=== PATIENT | male | born 1950 ===

== ENCOUNTER 2017-03-31 15:24 | Observation (INO) | payer MEDICARE ==
[2017-03-31] MEDS ORDERED: Lidocaine 2% Jelly 5 ML TUBE ONE (15:49)
[2017-03-31] MEDS ORDERED: Chlorhexidine Gluconate 15 ML UDCUP SSP PRN (17:13)
[2017-03-31 17:17] VITALS: BMI 19.8
[2017-03-31 17:53] LABS: #Eosinphils 0.1 thou/uL (0.0-0.7); #Lymphocytes 1.2 thou/uL (1.20-3.40); #Monocytes 1.4 thou/uL (0.11-0.59); #Neutrophils 9.3 thou/uL (1.40-6.50); %Basophils 0.1 % (0.0-1.0); %Eosinophils 1.1 % (0.0-10.0); %Lymphocytes 10.1 % (21.0-51.0); %Monocytes 11.9 % (0.0-10.0); Hematocrit 42.2 % (42.0-52.0); Mean Platelet Volume 8.4 fL (7.4-10.4); Red Blood Cell (RBC) Count 4.25 mill/uL (4.70-6.10)
[2017-03-31 18:00] LABS: PTT 43.6 SEC (22.9-36.1); Prothrombin Time 27.7 SEC (12.0-14.7)
[2017-03-31] MEDS ORDERED: Clindamycin/D5W 600 MG in Premix Bag 1 BAG IVPB SCH (18:00)
[2017-03-31 18:08] LABS: Anion Gap 16 mmol/L (10-20); BUN (Urea Nitrogen) 15 mg/dL (8.4-25.7); Calc. Creatinine Clearance 57 mL/min (70-130); Carbon Dioxide 25 mmol/L (23-31); Chloride 97 mmol/L (98-107); Estimated GFR-MDRD 74
[2017-03-31] MEDS ORDERED: Acetaminophen/Codeine 30-300mg Tablet PO PRN (18:39)
[2017-03-31 20:29] VITALS: TEMP 98.8
[2017-03-31 20:39] VITALS: BP 128/79
[2017-03-31] MEDS ORDERED: Acetaminophen/Codeine 30-300mg Tablet PO SCH (20:45)
[2017-03-31] MEDS ORDERED: TETANUS AND DIPHTHERIA TOX/PF 0.5 ML DISP.SYRIN IM ONE (21:00)
--- NOTE | 2017-04-01 08:28 | SS-2 ---
ATTENDING: Dr. Gregg Rodriguez CHIEF COMPLAINT: Left swelling of his face. HISTORY OF PRESENT ILLNESS: This is a 66-year-old male who presents with a 5-day history of pain an d swelling in his left cheek. He states it started while eating some red meat and a bone cut him. He tried taking food out with a toothpick and the swelling began. He states he cannot open his mout h all the way. He states he had fevers. He states he has not been able to eat or sleep normally. He does note difficulty swallowing, but no difficulty breathing. PAST MEDICAL HISTORY: Significant for atrial fibrillation, hypertension, and CHF. PAST SURGICAL HISTORY: Significant for mitral valve replacement. ALLERGIES: No known drug allergies. SOCIAL HISTORY: He does have a 10-wmpd-kcis smoking history. He denies excessive alcohol use, will drink socially. Denies any drug use. FAMILY HISTORY: Nothing of note. MEDICATIONS: On admission, his medications were Prinivil 5 mg, Lanoxin 250 mcg, metoprolol 50 mg XR . Warfarin 10 mg Thursday, Thursday, Thursday; warfarin 5 mg Thursday, , and Thursday. REVIEW OF SYSTEMS: GENERAL: He does admit to fevers and appetite changes because of the pain. He denies any night swe ats or fatigue. EYES: He denies any vision changes or eye pain. ENT: Denies any nasal congestion, rhinorrhea, or sore throat. RESPIRATORY: Denies any cough, congestion, shortness of breath. He does admit to exercise intolera nce that is longstanding. Last echo in 2011 showed an EF of 15%. CARDIOVASCULAR: Denies any chest pain, palpitations, edema. GASTROINTESTINAL: Denies any nausea, vomiting, diarrhea, constipation, abdominal pain, GI bleeding. : Denies any incontinence, dysuria. SKIN: Denies any rashes. He does admit to lesions, especially around his left cheek and inside his mouth. MUSCULOSKELETAL: Denies any pain, tenderness, stiffness, swelling or arthritis. NEUROLOGIC: Does admit to weakness that is longstanding. Denies any numbness, syncope, or seizures . PSYCHIATRIC: He denies any anxiety or depression. PHYSICAL EXAMINATION: VITAL SIGNS: His blood pressure is 127/73, pulse was 111, respirations were 20, temperature max was 97, pulse ox 98% on room air. Current weight was 58 kilograms. GENERAL: He is alert and oriented x4. He was thin. He was appropriately interactive. EYES: PERRLA. Conjunctivae within normal limits. ENT: Tympanic membranes were pearly bundy without bulging or erythema. Nasal mucosa within normal l imits. His oropharynx; he had a draining abscess of the gingiva on the lateral side of his lower r ow of teeth, extended basically the length of his mandible on the inside of his mouth. NECK: Supple, without lymphadenopathy. CARDIOVASCULAR: Regular rate and mechanical valve sounds can be heard on auscultation. Radial and pedal pulses are equal bilaterally. RESPIRATORY: Normal effort, no retractions. LUNGS: Clear to auscultation bilaterally. SKIN: Warm and dry. ABDOMEN: Soft, it was nontender. Bowel sounds were present x4. No mass or distention. EXTREMITIES: No clubbing, cyanosis or edema. MUSCULOSKELETAL: Structural tone, muscle strength and range of motion were within normal limits. NEUROLOGIC: No focal neurologic deficits. Cranial nerves II-XII grossly intact. GCS is 15. PSYCHIATRIC: He was appropriate. LABORATORY: For labs, he had a notable INR of 2.5. HOSPITAL COURSE: The patient was admitted to the hospital for his left gingival abscess. We consul t[facility]. Dr. Irving was a nice enough to give us some recommendations th at we appreciate. He said that he would rather put the patient on antibiotics for a few days and al so stopped his warfarin until his INR is down to 2.0, then he can come into his [facility] and have it drained just as an office procedure. The patient was in agr eement with this. He just wanted to have some pain medications given during that time. The patient was in agreement with this and did have some pain around the abscess site, but nothing that was goi ng to keep him in the hospital. He was discharged in appropriate condition. DISCHARGE DIAGNOSES: 1. Left dental abscess. 2. Longstanding atrial fibrillation with rate control. 3. Hypertension. DISCHARGE MEDICATIONS: 1. Metoprolol 50 mg. 2. Lisinopril 5 mg p.o. daily. 3. Digoxin 250 mcg. 4. Clindamycin 300 mg. 5. Chlorhexidine 6. Acetaminophen with codeine. DISCONTINUED MEDICATIONS: Warfarin. DISPOSITION: Disposition was stable. DISCHARGE INSTRUCTIONS: 1. Location, he will be discharged home into his own care. 2. Diet will be a heart healthy diet with no restrictions. He may need to have a mechanical soft d iet with the swelling and pain while he chews. 3. Activity will be as tolerated with no restrictions. 4. Follow up will be with Dr. Irving with [facility] in the coming days. He wi ll also follow up with daily INR checks at our clinic to ensure that his INR gets below [address] Irving's wishes before he gets this abscess drained.
--- NOTE | 2017-04-01 12:19 | CON ---
DATE OF CONSULTATION: 04/01/2017 REASON FOR CONSULTATION: Facial swelling in response to consultation by [facility]. CHIEF COMPLAINT: Facial swelling. HISTORY OF PRESENT ILLNESS: This is a male with approximately 5 day history of left facial swelling in the left mandibular vestibule area. This started after he feels like he injured his ch venetie ira with eating chicken bone or rib. He has a history of mitral valve replacement and is on Coumadi n currently. PAST MEDICAL HISTORY: Mitral valve replacement. PAST SURGICAL HISTORY: Mitral valve replacement. MEDICATIONS: Coumadin. SOCIAL HISTORY: Patient does smoke, drinks 6 packs a week. Denies drug abuse. PHYSICAL EXAMINATION: VITAL SIGNS: Patient's vital signs are stable. He is afebrile. GENERAL: Awake, alert and oriented x3 in no acute distress. He does have a fluctuant area of swell ing of left mandibular vestibule in the premolar area. His dentition is poor, but it does not look to be the source of this lesion. His opening is good. Floor of mouth is soft, supple. Anterior yeni rder of his mandible is palpable. His opening is good. LABORATORY DATA: White blood cell count is 12, INR is 2.5. ASSESSMENT: This is a male with left vestibular abscess, possibly secondary to trauma. PLAN: We will follow INR until below 2 and will then I\T\D in office. I feel this can be treated as an outpatient. Patient should be placed on clindamycin 300 mg t.i.d. In the interim, we will foll ow up with INR tomorrow to see the levels; once below 2, we will drain abscess.
== END 2017-03-31 21:50 | disposition home or self-care (01) ==
LOC: ERS 15:24 → T4-B 15:24 → INTOOBSV 16:53 → UNDOADMOB 16:53 → UNDODISOB 21:50
PROVIDERS: ADMIT Family Medicine; ATTEND Family Medicine
DX: K04.7 Periapical abscess without sinus (principal); I48.2 Chronic atrial fibrillation; I10 Essential (primary) hypertension; I50.9 Heart failure, unspecified; F17.210 Nicotine dependence, cigarettes, uncomplicated; Z79.01 Long term (current) use of anticoagulants; Z95.2 Presence of prosthetic heart valve
CPT/HCPCS: 80048; 85025; 85610; 85730; 90732; 96365; G0009; G0378; G0379; 36415; 90471; J3490

== ENCOUNTER 2017-12-03 10:18 | Outpatient (CLI) | payer MEDICARE ==
--- NOTE | 2017-12-03 11:15 | ULT ---
ULTRASOUND VENOUS DOPPLER LEFT UNILATERAL: HISTORY: Left leg pain and swelling. COMPARISON: None. TECHNIQUE: Real-time bundy-scale and color Doppler with spectral analysis of the left lower extremity venous syst em was performed. FINDINGS: The common femoral, femoral, and proximal portions of the greater saphenous and deep femoral veins, a s well as the popliteal and posterior tibial veins were interrogated. There is normal flow, augmentation, and compression. IMPRESSION: No deep venous thrombosis. POS: [facility]
== END 2017-12-03 10:19 | disposition home or self-care (01) ==
LOC: SCSULT 10:18
PROVIDERS: ATTEND Family Medicine
DX: M79.89 Other specified soft tissue disorders (principal); R60.9 Edema, unspecified; L53.9 Erythematous condition, unspecified; Z79.01 Long term (current) use of anticoagulants

== ENCOUNTER 2022-07-15 16:52 | Inpatient (IN) | payer MEDICARE, OTHER ==
[2022-07-15] MEDS ORDERED: Diltiazem 125 MG/25 ML ONE (17:06)
[2022-07-15 17:43] LABS: #Eosinphils 0.3 thou/uL (0.0-0.7); #Lymphocytes 1.2 thou/uL (1.20-3.40); #Monocytes 0.8 thou/uL (0.11-0.59); #Neutrophils 4.7 thou/uL (1.40-6.50); %Basophils 0.2 % (0.0-1.0); %Eosinophils 3.6 % (0.0-10.0); %Lymphocytes 16.9 % (21.0-51.0); %Monocytes 12.1 % (0.0-10.0); %Neutrophils 67.2 % (42.0-75.0); Hemoglobin 11.6 g/dL (14.0-18.0); INR-International Normal Ratio 2.4; Mean Corpuscular HGB CONC 32.2 g/dL (32.0-36.0); Mean Corpuscular Hemoglobin 30.5 pg (27.0-31.0); Mean Corpuscular Volume 94.8 fl (78.0-98.0); Mean Platelet Volume 9.1 fL (7.4-10.4); PTT 36.5 sec (22.9-36.1); Platelet Count 85 10x3/uL (130-400); Prothrombin Time 27.4 sec (12.0-14.7); RBC Distribution Width 13.8 % (11.5-14.5)
[2022-07-15 17:54] LABS: ALT (SGPT) 13 U/L (8-55); AST (SGOT) 28 U/L (5-34); Alkaline Phosphatase 78 U/L (40-110); Anion Gap 14 mmol/L (10-20); BUN (Urea Nitrogen) 18 mg/dL (8.4-25.7); Bilirubin, Total 0.8 mg/dL (0.2-1.2); Calc. Creatinine Clearance 0 mL/min (70-130); Calcium 8.8 mg/dL (7.8-10.44); Carbon Dioxide 19 mmol/L (23-31); Chloride 105 mmol/L (98-107); Estimated GFR 66; Globulin 3.4 g/dL (2.4-3.5); Glucose 122 mg/dL (83-110); Protein, Total 7.4 g/dL (5.8-8.1); Sodium 134 mmol/L (136-145)
[2022-07-15] MEDS ORDERED: Acetaminophen 325 MG TAB PO PRN (18:55)
[2022-07-15 19:38] LABS: Magnesium 1.9 mg/dL (1.6-2.6); Phosphorus 3.2 mg/dL (2.3-4.7)
[2022-07-15] MEDS ORDERED: Magnesium 2 GM/50 ML(in water) 1 GM in Premix Bag 1 BAG IVPB SCH (20:15)
[2022-07-15 20:32] LABS: Digoxin Less than 0.15 ng/mL (0.8-2.0)
[2022-07-15 20:37] LABS: Troponin I 0.024 ng/mL (< 0.028)
[2022-07-15 23:36] LABS: Troponin I 0.032 ng/mL (< 0.028)
[2022-07-16 00:59] LABS: SARS-CoV-2 NAA Rapid Test Not Detected (NotDetected)
[2022-07-16 05:54] LABS: #Eosinphils 0.2 thou/uL (0.0-0.7); #Lymphocytes 1.1 thou/uL (1.20-3.40); #Monocytes 0.8 thou/uL (0.11-0.59); #Neutrophils 3.8 thou/uL (1.40-6.50); %Basophils 0.3 % (0.0-1.0); %Eosinophils 3.4 % (0.0-10.0); %Monocytes 13.2 % (0.0-10.0); %Neutrophils 65.1 % (42.0-75.0); Hemoglobin 10.1 g/dL (14.0-18.0); Mean Corpuscular HGB CONC 32.2 g/dL (32.0-36.0); Mean Corpuscular Hemoglobin 30.4 pg (27.0-31.0); Mean Corpuscular Volume 94.5 fl (78.0-98.0); Mean Platelet Volume 8.9 fL (7.4-10.4); Platelet Count 90 10x3/uL (130-400); RBC Distribution Width 13.5 % (11.5-14.5); Red Blood Cell (RBC) Count 3.33 mill/uL (4.70-6.10); White Blood Cell (WBC) Count 5.8 10x3/uL (4.8-10.8)
[2022-07-16 06:02] LABS: INR-International Normal Ratio 2.2; Prothrombin Time 25.3 sec (12.0-14.7)
[2022-07-16 06:22] LABS: Anion Gap 11 mmol/L (10-20); BUN (Urea Nitrogen) 19 mg/dL (8.4-25.7); Calc. Creatinine Clearance 0 mL/min (70-130); Calcium 8.8 mg/dL (7.8-10.44); Carbon Dioxide 22 mmol/L (23-31); Chloride 105 mmol/L (98-107); Estimated GFR 78; Glucose 104 mg/dL (83-110); Magnesium 2.1 mg/dL (1.6-2.6); Phosphorus 2.4 mg/dL (2.3-4.7); Potassium 4.1 mmol/L (3.5-5.1); Sodium 134 mmol/L (136-145); Troponin I 0.045 ng/mL (< 0.028)
[2022-07-16] MEDS ORDERED: Diltiazem 125 MG in Sodium Chloride 0.9% 100 ML IVPB SCH (07:00)
[2022-07-16] MEDS ORDERED: Lisinopril 5 MG TAB PO SCH (09:00)
[2022-07-16] MEDS: Empagliflozin 10 MG TAB PO SCH (11:20)
[2022-07-16] MEDS: Digoxin 0.125 MG TAB PO SCH (11:25)
[2022-07-16] MEDS ORDERED: Warfarin Sodium 10 MG TAB PO SCH (17:00)
[2022-07-16] MEDS: Warfarin Sodium 10 MG TAB PO SCH (17:57)
[2022-07-17 05:25] LABS: Hemoglobin 10.5 g/dL (14.0-18.0); Mean Corpuscular HGB CONC 32.4 g/dL (32.0-36.0); Mean Corpuscular Hemoglobin 30.6 pg (27.0-31.0); Mean Corpuscular Volume 94.6 fl (78.0-98.0); Mean Platelet Volume 9.8 fL (7.4-10.4); Platelet Count 79 10x3/uL (130-400); RBC Distribution Width 13.9 % (11.5-14.5); Red Blood Cell (RBC) Count 3.42 mill/uL (4.70-6.10); White Blood Cell (WBC) Count 5.4 10x3/uL (4.8-10.8)
[2022-07-17 05:28] LABS: INR-International Normal Ratio 1.8; Prothrombin Time 21.4 sec (12.0-14.7)
[2022-07-17 05:50] LABS: Anion Gap 14 mmol/L (10-20); BUN (Urea Nitrogen) 19 mg/dL (8.4-25.7); Calc. Creatinine Clearance 53 mL/min (70-130); Carbon Dioxide 18 mmol/L (23-31); Chloride 104 mmol/L (98-107); Estimated GFR 75; Glucose 95 mg/dL (83-110); Potassium 4.3 mmol/L (3.5-5.1); Sodium 132 mmol/L (136-145)
[2022-07-17 06:16] LABS: Band 7 % (5-11); Eosinophils 3 % (0-10); Lymphocytes 20 % (21-51); MDiff Complete? YES; Monocytes 8 % (0-10); Neutrophil 62 % (42-75); Platelet Morphology Comment Appears Decreased
[2022-07-17 07:44] VITALS: BMI 20.9
[2022-07-17] MEDS: Digoxin 0.125 MG TAB PO SCH (08:54)
[2022-07-17] MEDS: Empagliflozin 10 MG TAB PO SCH (08:54)
[2022-07-17] MEDS ORDERED: FLU VACC QS2022-23(65YR UP)/PF 240 MCG/0.7 ML SYRINGE IM ONE (09:00)
[2022-07-17] MEDS: Heparin 10,000 UNITS/ 10 ML VIAL SLOW IVP SCH (10:04)
[2022-07-17] MEDS: Heparin 25,000 units/D5W 500 ML IV SCH (10:06)
[2022-07-17] MEDS: Warfarin Sodium 10 MG TAB PO SCH (17:08)
[2022-07-18 05:02] LABS: INR-International Normal Ratio 1.9; Prothrombin Time 22.2 sec (12.0-14.7)
[2022-07-18 05:03] LABS: PTT 74.4 sec (22.9-36.1)
[2022-07-18 05:06] LABS: #Eosinphils 0.1 thou/uL (0.0-0.7); #Monocytes 0.7 thou/uL (0.11-0.59); #Neutrophils 3.9 thou/uL (1.40-6.50); %Basophils 0.7 % (0.0-1.0); %Eosinophils 2.5 % (0.0-10.0); %Lymphocytes 17.4 % (21.0-51.0); %Monocytes 11.3 % (0.0-10.0); %Neutrophils 68.2 % (42.0-75.0); Hemoglobin 11.2 g/dL (14.0-18.0); Mean Corpuscular HGB CONC 32.2 g/dL (32.0-36.0); Mean Corpuscular Hemoglobin 30.5 pg (27.0-31.0); Mean Corpuscular Volume 94.7 fl (78.0-98.0); Mean Platelet Volume 10.1 fL (7.4-10.4); Platelet Count 78 10x3/uL (130-400); RBC Distribution Width 13.9 % (11.5-14.5); Red Blood Cell (RBC) Count 3.68 mill/uL (4.70-6.10); White Blood Cell (WBC) Count 5.8 10x3/uL (4.8-10.8)
[2022-07-18 05:17] LABS: Anion Gap 15 mmol/L (10-20); BUN (Urea Nitrogen) 25 mg/dL (8.4-25.7); Calc. Creatinine Clearance 44 mL/min (70-130); Calcium 9.4 mg/dL (7.8-10.44); Carbon Dioxide 20 mmol/L (23-31); Chloride 98 mmol/L (98-107); Estimated GFR 60; Glucose 95 mg/dL (83-110); Potassium 4.7 mmol/L (3.5-5.1); Sodium 128 mmol/L (136-145)
[2022-07-18] MEDS: Empagliflozin 10 MG TAB PO SCH (09:06)
[2022-07-18] MEDS: Digoxin 0.125 MG TAB PO SCH (09:06)
[2022-07-18] MEDS: Warfarin Sodium 10 MG TAB PO SCH (17:45)
[2022-07-18] MEDS: Heparin 25,000 units/D5W 500 ML IV SCH (20:55)
[2022-07-19 04:58] LABS: #Basophils 0.1 thou/uL (0.0-0.2); #Eosinphils 0.2 thou/uL (0.0-0.7); #Lymphocytes 0.9 thou/uL (1.20-3.40); #Monocytes 0.9 thou/uL (0.11-0.59); #Neutrophils 4.6 thou/uL (1.40-6.50); %Basophils 0.8 % (0.0-1.0); %Eosinophils 3.3 % (0.0-10.0); %Lymphocytes 13.9 % (21.0-51.0); %Monocytes 13.1 % (0.0-10.0); %Neutrophils 68.9 % (42.0-75.0); Mean Corpuscular HGB CONC 32.3 g/dL (32.0-36.0); Mean Corpuscular Hemoglobin 30.2 pg (27.0-31.0); Mean Corpuscular Volume 93.6 fl (78.0-98.0); Mean Platelet Volume 9.5 fL (7.4-10.4); Platelet Count 88 10x3/uL (130-400); Red Blood Cell (RBC) Count 3.65 mill/uL (4.70-6.10); White Blood Cell (WBC) Count 6.7 10x3/uL (4.8-10.8)
[2022-07-19 05:08] LABS: INR-International Normal Ratio 2.3; PTT 68.6 sec (22.9-36.1); Prothrombin Time 26.3 sec (12.0-14.7)
[2022-07-19 05:28] LABS: Anion Gap 13 mmol/L (10-20); BUN (Urea Nitrogen) 20 mg/dL (8.4-25.7); Calc. Creatinine Clearance 46 mL/min (70-130); Calcium 9.1 mg/dL (7.8-10.44); Carbon Dioxide 21 mmol/L (23-31); Chloride 101 mmol/L (98-107); Estimated GFR 66; Glucose 92 mg/dL (83-110); Potassium 4.4 mmol/L (3.5-5.1); Sodium 131 mmol/L (136-145)
[2022-07-19] MEDS: Digoxin 0.125 MG TAB PO SCH (08:40)
[2022-07-19] MEDS: Empagliflozin 10 MG TAB PO SCH (08:40)
[2022-07-19] MEDS: Warfarin Sodium 10 MG TAB PO SCH (17:06)
[2022-07-19] MEDS ORDERED: Lisinopril 5 MG TAB PO SCH (21:00)
[2022-07-20 05:42] LABS: INR-International Normal Ratio 2.4; Prothrombin Time 26.9 sec (12.0-14.7)
[2022-07-20 05:43] LABS: PTT 63.6 sec (22.9-36.1)
[2022-07-20 05:45] LABS: Anion Gap 13 mmol/L (10-20); BUN (Urea Nitrogen) 20 mg/dL (8.4-25.7); Calc. Creatinine Clearance 44 mL/min (70-130); Calcium 9.1 mg/dL (7.8-10.44); Carbon Dioxide 23 mmol/L (23-31); Chloride 99 mmol/L (98-107); Estimated GFR 62; Glucose 97 mg/dL (83-110); Magnesium 1.9 mg/dL (1.6-2.6); Potassium 4.4 mmol/L (3.5-5.1); Sodium 131 mmol/L (136-145)
[2022-07-20 05:59] LABS: #Eosinphils 0.3 thou/uL (0.0-0.7); #Lymphocytes 1.2 thou/uL (1.20-3.40); #Monocytes 0.9 thou/uL (0.11-0.59); #Neutrophils 3.6 thou/uL (1.40-6.50); %Basophils 0.3 % (0.0-1.0); %Eosinophils 5.2 % (0.0-10.0); %Monocytes 14.9 % (0.0-10.0); %Neutrophils 59.7 % (42.0-75.0); Hemoglobin 11.7 g/dL (14.0-18.0); Mean Corpuscular Hemoglobin 30.4 pg (27.0-31.0); Mean Corpuscular Volume 94.9 fl (78.0-98.0); Mean Platelet Volume 8.9 fL (7.4-10.4); Platelet Count 106 10x3/uL (130-400); RBC Distribution Width 14.2 % (11.5-14.5); Red Blood Cell (RBC) Count 3.84 mill/uL (4.70-6.10)
[2022-07-20] MEDS: Heparin 10,000 UNITS/ 10 ML VIAL SLOW IVP SCH (06:27)
[2022-07-20] MEDS: Empagliflozin 10 MG TAB PO SCH (07:45)
[2022-07-20] MEDS: Digoxin 0.125 MG TAB PO SCH (07:45)
[2022-07-20] MEDS: Heparin 25,000 units/D5W 500 ML IV SCH (07:49)
[2022-07-20] MEDS ORDERED: Lisinopril 5 MG TAB PO SCH ×2 (09:30→21:00)
[2022-07-20] MEDS ORDERED: Warfarin Sodium 5 MG TAB PO SCH (17:00)
[2022-07-20] MEDS: Warfarin Sodium 10 MG TAB PO SCH (17:10)
[2022-07-20] MEDS: Lisinopril 5 MG TAB PO SCH (20:50)
[2022-07-21 04:33] LABS: INR-International Normal Ratio 2.6; Prothrombin Time 28.7 sec (12.0-14.7)
[2022-07-21 04:45] LABS: Anion Gap 13 mmol/L (10-20); BUN (Urea Nitrogen) 27 mg/dL (8.4-25.7); Calc. Creatinine Clearance 41 mL/min (70-130); Calcium 8.6 mg/dL (7.8-10.44); Carbon Dioxide 21 mmol/L (23-31); Chloride 100 mmol/L (98-107); Estimated GFR 56; Glucose 94 mg/dL (83-110); Potassium 4.3 mmol/L (3.5-5.1); Sodium 130 mmol/L (136-145)
[2022-07-21 04:47] LABS: Band 1 % (5-11); Eosinophils 4 % (0-10); Hemoglobin 10.4 g/dL (14.0-18.0); Hypochromia SLIGHT = 6-15 cells (100X) (0-5/hpf); Lymphocytes 19 % (21-51); MDiff Complete? YES; Mean Corpuscular HGB CONC 32.9 g/dL (32.0-36.0); Mean Corpuscular Hemoglobin 31.1 pg (27.0-31.0); Mean Corpuscular Volume 94.4 fl (78.0-98.0); Mean Platelet Volume 9.4 fL (7.4-10.4); Monocytes 11 % (0-10); Neutrophil 65 % (42-75); Platelet Count 121 10x3/uL (130-400); Platelet Morphology Comment Appears Adequate; Red Blood Cell (RBC) Count 3.35 mill/uL (4.70-6.10); White Blood Cell (WBC) Count 5.6 10x3/uL (4.8-10.8)
[2022-07-21] MEDS: Digoxin 0.125 MG TAB PO SCH (09:18)
[2022-07-21] MEDS: Empagliflozin 10 MG TAB PO SCH (09:19)
[2022-07-21] MEDS: Lisinopril 5 MG TAB PO SCH ×2 (09:19→20:39)
[2022-07-21 12:22] LABS: INR-International Normal Ratio 2.7; Prothrombin Time 29.6 sec (12.0-14.7)
[2022-07-21] MEDS: Warfarin Sodium 10 MG TAB PO SCH (16:41)
[2022-07-21] MEDS ORDERED: Warfarin Sodium 5 MG TAB PO SCH (17:00)
[2022-07-21] MEDS ORDERED: Warfarin Sodium 2.5 MG TAB PO SCH (17:00)
[2022-07-21] MEDS: Heparin 25,000 units/D5W 500 ML IV SCH (19:26)
[2022-07-22 04:14] VITALS: TEMP 97.9
[2022-07-22 05:32] LABS: INR-International Normal Ratio 3.3; Prothrombin Time 35.4 sec (12.0-14.7)
[2022-07-22 05:33] LABS: PTT 101.5 sec (22.9-36.1)
[2022-07-22 05:40] LABS: Anion Gap 10 mmol/L (10-20); BUN (Urea Nitrogen) 28 mg/dL (8.4-25.7); Calc. Creatinine Clearance 39 mL/min (70-130); Calcium 8.8 mg/dL (7.8-10.44); Carbon Dioxide 24 mmol/L (23-31); Chloride 100 mmol/L (98-107); Estimated GFR 54; Glucose 94 mg/dL (83-110); Magnesium 2.1 mg/dL (1.6-2.6); Potassium 4.8 mmol/L (3.5-5.1); Sodium 129 mmol/L (136-145)
[2022-07-22 06:06] LABS: Eosinophils 4 % (0-10); Hemoglobin 10.3 g/dL (14.0-18.0); Lymphocytes 14 % (21-51); MDiff Complete? YES; Mean Corpuscular Hemoglobin 31.2 pg (27.0-31.0); Mean Corpuscular Volume 94.5 fl (78.0-98.0); Mean Platelet Volume 8.4 fL (7.4-10.4); Monocytes 19 % (0-10); Neutrophil 62 % (42-75); Platelet Count 126 10x3/uL (130-400); Platelet Morphology Comment Appears Decreased; Polychromasia SLIGHT = 2-3 cells (100X) (0-2/hpf); RBC Distribution Width 13.9 % (11.5-14.5); White Blood Cell (WBC) Count 5.8 10x3/uL (4.8-10.8)
[2022-07-22] MEDS: Digoxin 0.125 MG TAB PO SCH (08:42)
[2022-07-22] MEDS: Lisinopril 5 MG TAB PO SCH (08:43)
[2022-07-22] MEDS: Empagliflozin 10 MG TAB PO SCH (08:43)
[2022-07-22 09:31] VITALS: BP 102/57
== END 2022-07-22 12:25 | disposition home or self-care (01) | DRG 281 ==
LOC: ERS 16:52 → OBSVTOIN 18:47 → ERHOLD 18:47 → 2SW 18:47
PROVIDERS: ADMIT Family Medicine; ATTEND Family Medicine
DX: I48.21 Permanent atrial fibrillation (principal); I21.A1 Myocardial infarction type 2; E44.0 Moderate protein-calorie malnutrition; I50.22 Chronic systolic (congestive) heart failure; E87.1 Hypo-osmolality and hyponatremia; I42.0 Dilated cardiomyopathy; Z66 Do not resuscitate; Z20.822 Contact with and (suspected) exposure to COVID-19; F17.210 Nicotine dependence, cigarettes, uncomplicated; D69.6 Thrombocytopenia, unspecified; D64.9 Anemia, unspecified; R94.31 Abnormal electrocardiogram [ECG] [EKG]; I11.0 Hypertensive heart disease with heart failure; H11.31 Conjunctival hemorrhage, right eye; K70.10 Alcoholic hepatitis without ascites; Z79.01 Long term (current) use of anticoagulants; Z91.199 Patient's noncompliance with other medical treatment and regimen due to unspecified reason; Z28.21 Immunization not carried out because of patient refusal; Z68.20 Body mass index [BMI] 20.0-20.9, adult; Z79.899 Other long term (current) drug therapy; Z95.2 Presence of prosthetic heart valve
CPT/HCPCS: 36415; 71045; 80048; 80053; 80162; 83735; 83880; 83930; 83935; 84100; 84300; 84484; 85025; 85610; 85730; 87811; 93005; 96374; J1644; J3475; J3490; U0002